=== PATIENT | female | born 1990 | race Caucasian/White ===

== ENCOUNTER 2016-06-19 08:37 | Emergency (ER) | payer OTHER, BC ==
[~2016-06-19] VITALS: Wt 72.0 kg
[~2016-06-19 08:37] MED LIST: CIPR500T4 PO; FERR-31 PO; IBUP-1542 PO; PREN1TAB49
[2016-06-19 10:22] LABS: BASOPHILS % 0.3 % (0.0-2.0); EOSINOPHILS # 0.2 10^3/ul (0.0-0.5); EOSINOPHILS % 1.4 % (0.0-7.0); HEMATOCRIT 39.5 % (37.0-47.0); HEMOGLOBIN 13.3 g/dl (12.0-16.0); LYMPHOCYTES % 18.3 % (15.0-51.0); MEAN CORPUSCULAR HEMOGLOBIN 30.5 pg (29.0-33.0); MEAN CORPUSCULAR HGB CONC 33.8 g/dl (32.0-37.0); MEAN CORPUSCULAR VOLUME 90.2 fl (82.0-101.0); MONOCYTE # 0.4 10^3/ul (0.3-0.9); MONOCYTES % 3.7 % (0.0-11.0); NEUTROPHIL # 8.3 10^3/ul (1.6-7.5); NEUTROPHILS % 76.3 % (39.0-77.0); PLATELET COUNT 244 10^3/UL (140-440); RED BLOOD COUNT 4.38 10^6/ul (4.20-5.40); RED CELL DISTRIBUTION WIDTH 13.6 % (11.5-14.5); UNCORRECTED WBC 10.9 10^3/ul (4.8-10.8); WHITE BLOOD COUNT 10.9 10^3/ul (4.8-10.8)
--- NOTE | 2016-06-19 10:24 | RADRPT ---
PROCEDURE: Abdominal Ultrasound (right upper quadrant). CLINICAL INDICATION: Abdominal pain TECHNIQUE: Multiple real-time longitudinal and transverse images of the right upper quadrant of th e abdomen were acquired utilizing a curved array transducer. Images were reviewed on a high-resoluti on PACS workstation. COMPARISON: CT abdomen pelvis 07/22/2015. FINDINGS: The liver is normal in size and echogenicity. No focal masses are identified. There is no evidenc e of intra or extrahepatic ductal dilatation. The common bile duct measures 3.9 mm in diameter. No gallstones or gallbladder wall thickening is seen. The visualized portions of the pancreas are unremarkable with obscuration of the tail of the pancrea s. No free fluid is identified. There is no evidence of right hydronephrosis or renal calcification. The right kidney measures 11.4 cm in length. The visualized portions of the aorta and inferior vena cava are within normal limits. IMPRESSION: 1. Unremarkable right upper quadrant ultrasound. RPTAT: KK .Ramon Gan MD, MD Date Time Electronically viewed and signed by .Ramon Gan MD, on 06/19/2016 10:24 .B/
[2016-06-19 10:26] LABS: CONDITION 1
--- NOTE | 2016-06-19 10:27 | RADRPT ---
PROCEDURE: US OB. CLINICAL INDICATION: Abdominal pain. . TECHNIQUE: Transabdominal imaging of the gravid uterus is available for review COMPARISON: None available FINDINGS: Intrauterine is identified. The crown-rump length equals 8.82 cm. The estimated menstrua l age equals 14 weeks 5 days by ultrasound criteria. Normal cardiac activity is identified. T he heart rate is 141 beats per minute. No perigestational hemorrhages identified. The ovaries are within normal limits bilaterally. No free fluid is seen. IMPRESSION: 1. Single live intrauterine with an estimated menstrual age of 14 weeks 5 days by ultraso und criteria and an estimated date of delivery of 12/13/2016. RPTAT: KK .Ramon Gan MD, Date Time Electronically viewed and signed by .Ramon Gan MD, on 06/19/2016 10:26 .B/
[2016-06-19 10:31] LABS: ADD UMIC YES; URINE BILIRUBIN (Dip) NEGATIVE (NEGATIVE); URINE BLOOD (Dip) 3+ (NEGATIVE); URINE COLOR LT. YELLOW (YELLOW); URINE GLUCOSE (Dip) NEGATIVE (NEGATIVE); URINE KETONES (Dip) NEGATIVE (NEGATIVE); URINE LEUKOCYTE ESTERASE (Dip) 2+ (NEGATIVE); URINE NITRITE (Dip) NEGATIVE (NEGATIVE); URINE TOTAL PROTEIN (Dip) NEGATIVE (NEGATIVE); URINE UROBILINOGEN (Dip) 0.2 E.U./dL (0.1-1.0)
[2016-06-19 10:43] LABS: ALBUMIN 3.8 g/dl (3.3-4.9)
[2016-06-19 10:44] LABS: POTASSIUM 3.8 mmol/L (3.5-5.1)
[2016-06-19 10:46] LABS: ALBUMIN/GLOBULIN RATIO 1.11; BILIRUBIN,INDIRECT 0.2 mg/dl (0-1.1); BILIRUBIN,TOTAL 0.2 mg/dl (0.2-1.3); CREATININE 0.49 mg/dl (0.44-1.00); TOTAL PROTEIN 7.2 g/dl (6.1-8.1)
[2016-06-19 10:47] LABS: CALCIUM 8.9 mg/dl (8.4-10.2)
[2016-06-19 10:48] LABS: BACTERIA,URINE FEW
[2016-06-19] MEDS ORDERED: CEPH-443 PO (10:50)
[2016-06-19] MEDS ORDERED: METO10TA92 PO (10:50)
[2016-06-19] MEDS ORDERED: CEPHALEXIN 500 MG CAP PO ONE (11:00)
[2016-06-19] MEDS ORDERED: METOCLOPRAMIDE 10 MG TAB PO ONE (11:00)
--- NOTE | 2016-06-19 11:05 | ERD ---
ER Documentation Chief Complaint Date/Time DATE: 06/19/16 TIME: 10:53 Chief Complaint nausea and vomiting with ap for 2 weeks. 14wks preg. no vag bleed HPI This is a 25-year-old female A2 (miscarriages) presenting to the emergency department stating she is 14 weeks complaining of abdominal pain since last week. Patient states that she has pelvic pain rating it moderate in severity. She denies any fever. Patient denies any hematuria, painful urination, or constipation. Patient does admit to having some diarrhea. She denies any vaginal bleeding. Patient also states that she has nausea and epigastric pain after she eats for the past 2 weeks. Patient states that she has been eating smaller meals and avoiding foods for gastritis but she still feels nauseous at times. She denies any vomiting, hematemesis, hematochezia or melena. Patient denies any past abdominal surgeries ROS All systems reviewed and are negative except as per history of present illness. Medications Home Meds Active Scripts Cephalexin* (Keflex*) 500 Mg Capsule, 500 MG PO QID for 5 Days, CAP Prov:BRENNA RAMIREZ PA-C 06/19/16 Metoclopramide* (Reglan*) 10 Mg Tablet, 5 MG PO Q6 Y for NAUSEA AND/OR VOMITING , #10 TAB Prov:BRENNA RAMIREZ PA-C 06/19/16 Ciprofloxacin Hcl* (Ciprofloxacin Hcl*) 500 Mg Tablet, 500 MG PO BID for 10 Days , TAB Prov:PATRICE SOLOMON PA-C 07/22/15 Ibuprofen* (Motrin*) 600 Mg Tab, 600 MG PO Q6, #30 TAB Prov:OSMIN JAMES MD 02/02/14 Reported Medications Ferrous Sulfate (Iron Supplement) 1 Tab Tablet, 1 TAB PO DAILY 01/18/14 Vits W-Ca,Fe,Fa(<1MG) () 1 Tab Tablet 07/06/11 Allergies Allergies: Coded Allergies: No Known Drug Allergies (Verified Allergy, Unknown, 07/22/15) PMhx/Soc History of Surgery: No Anesthesia Reaction: No Hx Neurological Disorder: No Hx Respiratory Disorders: No Hx Cardiac Disorders: No Hx Psychiatric Problems: No Hx Miscellaneous Medical Probl: No Hx Alcohol Use: No Hx Substance Use: No Hx Tobacco Use: No Physical Exam Vitals Vital Signs Date Time Temp Pulse Resp B/P Pulse Ox O2 Delivery O2 Flow Rate FiO2 06/19/16 08:42 98.3 75 20 119/70 100 Physical Exam GENERAL: well-developed/well-nourished, in no apparent distress, non-toxic appearing HENT: NC/AT, moist mucous membranes EYES: Conjunctiva normal NECK: Supple, no lymphadenopathy PULM: CTA bilaterally, no rales, rhonchi, or wheezing heard CV: Normal S1S2, RRR, good capillary refill GI: Soft, non-distended, tender to palpation mild epigastric region Tender palpation in the suprapubic region Normal bowel sounds, no masses or organomegaly felt on exam No gross peritonitis, no bruits Negative Rovsing, negative Sweet, negative McBurney's point, Negative CVAT BACK: No masses EXT: No clubbing, cyanosis, or edema NEURO: Alert and Orientated SKIN: Intact, normal turgor PSYCH: Normal mood and mentation Result Diagram: 06/19/1650 06/19/16 0950 Results 24 hrs Laboratory Tests Test 06/19/16 09:50 Alanine Aminotransferase (ALT/SGPT) 23IU/L Albumin 3.8g/dl Albumin/Globulin Ratio 1.11 Alkaline Phosphatase 71IU/L Anion Gap 17 Aspartate Amino Transf (AST/SGOT) 19IU/L Basophils # 0.010^3/ul Basophils % 0.3% Blood Urea Nitrogen 6mg/dl Calcium Level 8.9mg/dl Carbon Dioxide Level 24mmol/L Chloride Level 101mmol/L Creatinine 0.49mg/dl Direct Bilirubin 0.00mg/dl Eosinophils # 0.210^3/ul Eosinophils % 1.4% Globulin 3.40g/dl Glucose Level 88mg/dl Hematocrit 39.5% Hemoglobin 13.3g/dl Indirect Bilirubin 0.2mg/dl Lipase 177U/L Lymphocytes # 2.010^3/ul Lymphocytes % 18.3% Mean Corpuscular Hemoglobin 30.5pg Mean Corpuscular Hemoglobin Concent 33.8g/dl Mean Corpuscular Volume 90.2fl Mean Platelet Volume 9.0fl Monocytes # 0.410^3/ul Monocytes % 3.7% Neutrophils # 8.310^3/ul Neutrophils % 76.3% Nucleated Red Blood Cells # 0.010^3/ul Nucleated Red Blood Cells % 0.0/100WBC Platelet Count 90723^3/UL Potassium Level 3.8mmol/L Red Blood Count 4.3810^6/ul Red Cell Distribution Width 13.6% Sodium Level 138mmol/L Total Bilirubin 0.2mg/dl Total Protein 7.2g/dl Urine Bacteria FEW Urine Bilirubin NEGATIVE Urine Clarity CLEAR Urine Color LT. YELLOW Urine Epithelial Cells MODERATE Urine Glucose NEGATIVE% Urine Hemoglobin 3+ Urine Ketones NEGATIVE Urine Leukocyte Esterase 2+ Urine Microscopic RBC 2-5/HPF Urine Microscopic WBC 2-5/HPF Urine Nitrite NEGATIVE Urine Specific [place] 1.010 Urine Total Protein NEGATIVE Urine Urobilinogen 0.2 E.U./dL Urine pH 7.0 White Blood Count 10.910^3/ul Current Medications Medications (Trade) Dose Ordered Sig/Juan Manuel Route PRN Reason Start Time Stop Time Status Last Admin Dose Admin Metoclopramide HCl (Reglan) 5 mg ONCE ONCE PO 06/19/16 11:00 06/19/16 11:01 DC 06/19/16 11:01 Cephalexin (Keflex) 500 mg ONCE ONCE PO 06/19/16 11:00 06/19/16 11:01 DC 06/19/16 11:01 Procedures/MDM This is a 25-year-old female A2 (miscarriages) presenting to the emergency department stating she is 14 weeks complaining of nausea, diarrhea, epigastric and pelvic abdominal pain without any vaginal bleeding since last week. On examination patient appears well, she is smiling without any evidence of acute distress. Her abdominal examination was unremarkable, patient did have mild to moderate tenderness in her epigastric and pelvic region. Patient's pain is likely due to gastritis and acute cystitis with hematuria, Other differentials include gastroenteritis vs threatened . I have considered appendicitis, diverticulitis, pancreatitis, ovarian torsion, ruptured ovarian cyst, complete but is unlikely due to physical examination and diagnostic testing. I have a low suspicion for pyelonephritis or infected nephrolithiasis. Low suspicion for cholecystitis, cholelithiasis lab work was drawn. CBC did not show any evidence of significant leukocytosis or anemia. White count was mildly elevated at 10.9 which is likely due to stress reaction. CMP did not show any evidence of renal, liver, or electrolyte abnormalities. Lipase was normal. UA did did show evidence of a urinary tract infection with +2 leukocyte esterase, +3 hemoglobin, and 2-5 WBC. Patient was given 5mg Reglan in the ED and first dose of Keflex antibiotic. Patient is healing stable and neurovascular intact for discharge to follow-up with her OB/ [facility] today. Discussed to take her documentations with her. Discussed return to the ER for any worsening symptoms. Patient understands and agrees with this plan Gallbladder ultrasound was unremarkable Pelvic ultrasound: Single live intrauterine with an estimated menstrual age of 14 weeks 5 days by ultrasound criteria and an estimated date of delivery of 12/13/2016. Prescriptions given: keflex 500mg QID x 7 days and Reglan 5mg for nausea Departure Diagnosis: Primary Impression: UTI in Trimester: second trimester Qualified Code: O23.42 - UTI in , second trimester Additional Impression: GERD (gastroesophageal reflux disease) Esophagitis presence: esophagitis presence not specified Qualified Code: K21.9 - Gastroesophageal reflux disease, esophagitis presence not specified Condition: Stable Patient Instructions: Lifestyle Changes for Controlling GERD, Understanding Urinary Tract Infections (UTIs), Gerd (Adult) Referrals: CHARLEE ARMAS (PCP) Additional Instructions: FOLLOW UP WITH YOUR CANE PILER TOMORROW.Return to this facility if you are not improving as expected. Take all medicines as directed. Return to this facility if you are not improving as expected. BRENNA RAMIREZ PA-C Jun 19, 2016 11:05
[2016-06-19 11:10] VITALS: BP 124/65; PULSE 74; RESP 19; TEMP 98.2
== END 2016-06-19 11:12 | disposition home or self-care (01) ==
LOC: FTE 08:37
DX: O26.892 Other specified pregnancy related conditions, second trimester (principal); O23.42 Unspecified infection of urinary tract in pregnancy, second trimester; O99.612 Diseases of the digestive system complicating pregnancy, second trimester; K21.9 Gastro-esophageal reflux disease without esophagitis; R10.2 Pelvic and perineal pain; Z3A.14 14 weeks gestation of pregnancy
CPT/HCPCS: 36415; 76705; 76801; 80053; 81001; 83690; 84702; 85025; Z7502; Z7610; 81003

== ENCOUNTER → 2016-07-06 | Emergency (ER) | payer BC, OTHER ==
[~2016-07-06] VITALS: Ht 165.1 cm; Wt 75.4 kg
[~2016-07-06] MED LIST changes: +ACETAMINOPHEN 325 MG TAB PO STA; +CEPH-443 PO; +METO10TA92 PO; +NITR-58 PO; +ONDANSETRON 4 MG INJ IV STA; +SOD CHLORIDE 0.9% 1,000 ML IV STA
[2016-07-06 14:39] VITALS: Ht 165.1 cm; Wt 75.4 kg
[2016-07-06 17:35] LABS: ADD SCAN DIFF NO
[2016-07-06 17:40] LABS: BASOPHILS % 0.2 % (0.0-2.0); EOSINOPHILS # 0.1 10^3/ul (0.0-0.5); EOSINOPHILS % 1.3 % (0.0-7.0); HEMATOCRIT 37.5 % (37.0-47.0); HEMOGLOBIN 12.4 g/dl (12.0-16.0); LYMPHOCYTES # 2.2 10^3/ul (0.8-2.9); MEAN CORPUSCULAR HEMOGLOBIN 30.2 pg (29.0-33.0); MEAN CORPUSCULAR HGB CONC 33.1 g/dl (32.0-37.0); MEAN CORPUSCULAR VOLUME 91.2 fl (82.0-101.0); MEAN PLATELET VOLUME 10.6 fl (7.4-10.4); MONOCYTE # 0.7 10^3/ul (0.3-0.9); NEUTROPHILS % 71.9 % (39.0-77.0); PLATELET COUNT 253 10^3/UL (140-415); RED BLOOD COUNT 4.11 10^6/ul (4.20-5.40); RED CELL DISTRIBUTION WIDTH 13.2 % (11.5-14.5); WHITE BLOOD COUNT 11.1 10^3/ul (4.8-10.8)
[2016-07-06 17:43] LABS: ADD UMIC YES; URINE BILIRUBIN (Dip) NEGATIVE (NEGATIVE); URINE BLOOD (Dip) 3+ (NEGATIVE); URINE COLOR LT. YELLOW (YELLOW); URINE GLUCOSE (Dip) NEGATIVE (NEGATIVE); URINE KETONES (Dip) NEGATIVE (NEGATIVE); URINE LEUKOCYTE ESTERASE (Dip) TRACE (NEGATIVE); URINE NITRITE (Dip) NEGATIVE (NEGATIVE); URINE TOTAL PROTEIN (Dip) NEGATIVE (NEGATIVE); URINE UROBILINOGEN (Dip) 0.2 E.U./dL (0.1-1.0)
--- NOTE | 2016-07-06 17:57 | RADRPT ---
PROCEDURE: US OB. CLINICAL INDICATION: Vaginal bleeding TECHNIQUE: Multiple sonographic images of the pelvis and gravid uterus were obtained. The images were reviewed on a PACS workstation. COMPARISON: 06/19/2016 FINDINGS: The cervix is closed with a length of 5.6 cm. There is a single viable intrauterine gestation. Cardiac activity is present with 140 beats per min bebeto. There is a vertex presentation. The placenta is anterior lateral. There is no evidence for an abruption . There is evidence of part ial placenta previa, with the placenta branch extending to the level of the cervix.. There is a normal amount of amniotic fluid with a MVP= 3.9 cm. Measurements were made in order to determine age. The results are as follows: BPD =3.5 cm HC =12.6 cm AC =11.9 cm FL =2.1 cm Estimated gestational age of approximately 16 weeks and 6 days based on ultrasound measurements. The estimated date of delivery is 12/15/16, based on ultrasound measurements. The EFW = 174 g. The right ovary is normal. The left ovary is not visualized. RPTAT: AA IMPRESSION: Single viable intrauterine gestation of approximately 16 weeks and 6 days based on ultrasound measu rements. Anterior lateral placenta with partial placenta previa. .Navarro Jacob MD, MD Date Time Electronically viewed and signed by .Navarro Jacob MD, MD on 07/06/2016 17:56 .S/
[2016-07-06 18:10] LABS: BACTERIA,URINE MODERATE; SQUAMOUS EPITHELIAL CELL,UR MODERATE; URINE RBCS >50 /HPF (0)
--- NOTE | 2016-07-06 19:10 | ERD ---
ER Documentation Chief Complaint Date/Time DATE: 07/06/16 TIME: 18:55 Chief Complaint 17wks preg vag bleed (pink, scant bleeding) HPI Pleasant 25-year-old female presents to emergency department for vaginal bleeding. Patient reports that she is carrying a as a surrogate, proximately 17 weeks . 2 miscarriages. She is in room with her , reports that she was on the couch and got up to go to the bathroom. Patient reports blood in the toilet and on the toilet paper. Patient is wearing a lul-pad reports pink to red spotting, not saturating pads. Patient has had one pad on since bleeding started. Patient reports headache 3/10 on pain scale described as squeezing. Patient denies pelvic pain, back pain, dysuria, vomiting. Patient reports nausea, intermittent and that she is able to tolerate fluids. Patient denies fever or chills. . ROS All systems reviewed and are negative except as per history of present illness. Medications Home Meds Active Scripts Cephalexin* (Keflex*) 500 Mg Capsule, 500 MG PO QID for 5 Days, CAP Prov:BRENNA RAMIREZ PA-C 06/19/16 Metoclopramide* (Reglan*) 10 Mg Tablet, 5 MG PO Q6 Y for NAUSEA AND/OR VOMITING , #10 TAB Prov:BRENNA RAMIREZ PA-C 06/19/16 Ciprofloxacin Hcl* (Ciprofloxacin Hcl*) 500 Mg Tablet, 500 MG PO BID for 10 Days , TAB Prov:PATRICE SOLOMON PA-C 07/22/15 Ibuprofen* (Motrin*) 600 Mg Tab, 600 MG PO Q6, #30 TAB Prov:OSMIN JAMES MD 02/02/14 Reported Medications Ferrous Sulfate (Iron Supplement) 1 Tab Tablet, 1 TAB PO DAILY 01/18/14 Vits W-Ca,Fe,Fa(<1MG) () 1 Tab Tablet 07/06/11 Allergies Allergies: Coded Allergies: No Known Drug Allergies (Verified Allergy, Unknown, 07/22/15) PMhx/Soc Medical and Surgical Hx: pt denies Medical Hx, pt denies Surgical Hx History of Surgery: No Anesthesia Reaction: No Hx Neurological Disorder: No Hx Respiratory Disorders: No Hx Cardiac Disorders: No Hx Psychiatric Problems: No Hx Miscellaneous Medical Probl: No Hx Alcohol Use: No Hx Substance Use: No Hx Tobacco Use: No Smoking Status: Never smoker Physical Exam Vitals Vital Signs Date Time Temp Pulse Resp B/P Pulse Ox O2 Delivery O2 Flow Rate FiO2 07/06/16 14:39 98.1 79 18 108/58 100 Vitals stable, nursing notes reviewed Physical Exam Const: No acute distress Head: Atraumatic Eyes: Normal Conjunctiva, no pallor or jaundice, EOMI, pupils equal round and reactive to light and accommodation ENT: Mucous membranes moist, Neck: Full range of motion..~ No meningismus. Resp: Clear to auscultation bilaterally Cardio: Regular rate and rhythm, no murmurs Abd: Soft, no epigastric tenderness. Negative CVA tenderness Skin: Back: No midline or flank tenderness Ext: No cyanosis, or edema Neur: Awake and alert Psych: Normal Mood and Affect Result Diagram: 07/06/16 1710 Results 24 hrs Laboratory Tests Test 07/06/16 17:05 07/06/16 17:15 Urine Bacteria MODERATE Urine Bilirubin NEGATIVE Urine Clarity HAZY Urine Color LT. YELLOW Urine Glucose NEGATIVE% Urine Hemoglobin 3+ Urine Ketones NEGATIVE Urine Leukocyte Esterase TRACE Urine Microscopic RBC >50/HPF Urine Microscopic WBC 25-50/HPF Urine Nitrite NEGATIVE Urine Specific [place] 1.025 Urine Squamous Epithelial Cells MODERATE Urine Total Protein NEGATIVE Urine Urobilinogen 0.2 E.U./dL Urine pH 6.0 Basophils # 0.010^3/ul Basophils % 0.2% Beta HCG, Quantitative 39198.0mIU/ml Eosinophils # 0.110^3/ul Eosinophils % 1.3% Hematocrit 37.5% Hemoglobin 12.4g/dl Lymphocytes # 2.210^3/ul Lymphocytes % 20.0% Mean Corpuscular Hemoglobin 30.2pg Mean Corpuscular Hemoglobin Concent 33.1g/dl Mean Corpuscular Volume 91.2fl Mean Platelet Volume 10.6fl Monocytes # 0.710^3/ul Monocytes % 6.0% Neutrophils # 8.010^3/ul Neutrophils % 71.9% Nucleated Red Blood Cells # 0.010^3/ul Nucleated Red Blood Cells % 0.0/100WBC Platelet Count 63130^3/UL Red Blood Count 4.1110^6/ul Red Cell Distribution Width 13.2% White Blood Count 11.110^3/ul Current Medications Medications (Trade) Dose Ordered Sig/Juan Manuel Route PRN Reason Start Time Stop Time Status Last Admin Dose Admin Sodium Chloride (NS) 1,000 ml @ 1,000 mls/hr Q1H STAT IV 07/06/16 17:05 07/06/16 18:04 DC 07/06/16 17:25 Acetaminophen (Tylenol Tab) 650 mg ONCE STAT PO 07/06/16 17:05 07/06/16 17:08 DC 07/06/16 17:25 Ondansetron HCl (Zofran Inj) 4 mg ONCE STAT IV 07/06/16 17:05 07/06/16 17:08 DC 07/06/16 17:25 Interpretation Text CBC shows elevated white count suggestive of infection, no evidence of hemorrhage Urinalysis shows microscopic hematuria and psychosis suggestive of urinary tract infection. Procedures/MDM Pleasant 25-year-old female presenting to emergency department today with vaginal bleeding. Patient is approximately 17 weeks with surrogate . Symptoms started today when she moved from the couch. Patient is not saturating peripads. Vaginal ultrasound rules out the sentinel abruption. There is evidence of a partial placenta previa with placenta branch extending to the level of the cervix.. Ultrasound verifies that cervix is closed, single viable intrauterine . Patient is 16 weeks and 6 days gestation based on ultrasound measurements. Abnormal CBC , elevated WBC, urinalysis findings consistent with urinary tract infection. I have discussed case with I feel the patient is stable for discharge at this time. I have discussed results , examination findings, the treatment plan with the patient and family present prior to discharge. Indications for emergent reevaluation, side effects of medication were also discussed. All questions were answered. Patient verbalizes understanding and agrees with plan of care. MARIA DEL CARMEN BECERRA Jul 06, 2016 19:09
[2016-07-06 19:35] VITALS: BP 112/53; PULSE 64; RESP 18; TEMP 98.3
== END | disposition home or self-care (01) ==
LOC: FTE 14:33
DX: O23.42 Unspecified infection of urinary tract in pregnancy, second trimester (principal); Z3A.16 16 weeks gestation of pregnancy
CPT/HCPCS: 76805; 81001; 84702; 85025; 86900; 86901; 96374; 99285; J2405; J7030; 81003

== ENCOUNTER 2016-09-02 21:49 | Outpatient (CLI) | payer BC, OTHER ==
[~2016-09-02] VITALS: Ht 165.1 cm; Wt 79.4 kg
[~2016-09-02 21:49] MED LIST changes: -ACETAMINOPHEN 325 MG TAB PO STA; -ONDANSETRON 4 MG INJ IV STA; -SOD CHLORIDE 0.9% 1,000 ML IV STA
[2016-09-02 22:12] VITALS: Ht 165.1 cm; Wt 79.4 kg
[2016-09-02 22:13] VITALS: BP 118/53; PULSE 75; RESP 18
--- NOTE | 2016-09-02 22:16 | CONS ---
Date/Time of Note Date/Time of Note DATE: 09/02/16 TIME: 22:14 Assessment/Plan Assessment/Plan Additional Assessment/Plan r/o ptl -FFN, CL, UA ordered -f/u results Consultation Date/Type/Reason Admit Date/Time Hx of Present Illness 25 y/o at 25.4 weeks who presents with abdominal pain. Patient has pain on right side of abdomen that's constant and throughout abdomen that's intermittent. Denies LOF, VB, dysuria. +FM. Patient is a surrgogate. Getting PNC, no complications. h/o x3. Past Medical History Medical History: no pertinent history Past Surgical History Past Surgical Hx: no surgical history Social History Other Social History Denies habits. Exam/Review of Systems Exam Gen: NAD HEENT: NCAT CV: RRR Pulm: CTAB Abd: gravid, NT Back: no CVAT Ext: NT FHT: reassuring [place]: +JAZZMINE Deras Sep 02, 2016 22:16
[2016-09-02 23:02] LABS: ADD UMIC YES; URINE BILIRUBIN (Dip) NEGATIVE (NEGATIVE); URINE BLOOD (Dip) 1+ (NEGATIVE); URINE COLOR LT. YELLOW (YELLOW); URINE GLUCOSE (Dip) NEGATIVE (NEGATIVE); URINE KETONES (Dip) NEGATIVE (NEGATIVE); URINE LEUKOCYTE ESTERASE (Dip) 1+ (NEGATIVE); URINE NITRITE (Dip) NEGATIVE (NEGATIVE); URINE TOTAL PROTEIN (Dip) NEGATIVE (NEGATIVE); URINE UROBILINOGEN (Dip) 0.2 E.U./dL (0.1-1.0)
[2016-09-02 23:35] LABS: BACTERIA,URINE MODERATE; SQUAMOUS EPITHELIAL CELL,UR FEW
--- NOTE | 2016-09-03 00:24 | TRIAGE ---
OB Triage Datetime Report Generated by CPN: 09/03/2016 00:24 Datetime: 09/03/2016 23:20 Stage of : OB Triage Maternal Assessment Level of Consciousness: Fully Conscious Labor Evaluation Frequency: X1 Monitor Mode: External Duration (sec)2399: 70 Pain Presence: None/Denies Pain Goal: 3 Pain Assessment Comments: PT SLEEPING AT THIS MOMENT. Datetime: 09/03/2016 00:02 Stage of : OB Triage Datetime: 09/02/2016 22:30 Stage of : OB Triage Maternal Assessment Level of Consciousness: Fully Conscious Labor Evaluation Frequency: IRREGULAR Monitor Mode: External Duration (sec)2399: 60-70 Heart Rate FHR Baseline Rate: 140 Monitor Mode: Doppler Pain Assessment Pain Scale: 6 Pain Presence: Intermittent Pain Type: Cramping Pain Location: Abdomen Pain Goal: 3 Datetime: 09/02/2016 22:02 Stage of : OB Triage Time of Arrival: 09/02/2016 21:47 EGA: 25.4 Arrived By: Ambulatory Arrived From: Home Chief Complaint: PT C/O ABDOMEN PAIN AND HEADACH. (Annotations: Data stored by CPN on behalf of u ser) Chief Complaint: PT C/O ABDOMEN PAIN AND HEADACHE. Movement: Present Contractions: Irregular Rupture of Membranes: Denies Vaginal Bleeding: None Vaginal Discharge: Denies Recent Sexual Intercouse: Denies Abdominal Trauma: Not Applicable Patient Complaints: Back Pain; Headache Time Provider Notified: 09/02/2016 22:02 Provider Notified: DR TUBBS Initial Plan: TOCO APPLIED AND DOPPLAR Maternal Assessment Level of Consciousness: Fully Conscious DTR's/Clonus: DTRs 2+; No Clonus Headache: Denies Blurred Vision: No Respiratory Effort: Unlabored; Regular Rhythm; Equal Expansion Breath Sounds, Left: Clear and Equal Breath Sounds, Right: Clear and Equal Nausea/Vomiting: Denies RUQ Epigastric Pain: Denies Lower Extremities Edema: None Upper Extremities Edema: None Facial Edema: None Temperature Route: Oral Fall Risk Assessment History of Falling: (0) No Secondary Diagnosis: (0) No Ambulatory Aid: (0) Bedrest/Nurse Assist IV Therapy: (0) No Gait: (0) Normal/Bedrest/Immobile Mental Status: (0) Oriented to Own Ability Fall Score: 0 Fall Risk Score Definition: No Risk: No action required Labor Evaluation Frequency: IRREGULAR Monitor Mode: External Duration (sec)2399: 50-60 Heart Rate FHR Baseline Rate: 144 Monitor Mode: Doppler Pain Assessment Pain Scale: 6 Pain Presence: Intermittent Pain Type: Cramping Pain Location: Abdomen Pain Goal: 3
== END 2016-09-03 00:05 | disposition home or self-care (01) ==
LOC: OBT 21:49 → L-D 21:51 → OBT 09-03 00:05
PROVIDERS: ATTEND Obstetrics & Gynecology
DX: O47.02 False labor before 37 completed weeks of gestation, second trimester (principal); O26.892 Other specified pregnancy related conditions, second trimester; R10.11 Right upper quadrant pain; Z3A.25 25 weeks gestation of pregnancy
CPT/HCPCS: 81001; 81003; 82731

== ENCOUNTER 2016-12-06 11:41 | Outpatient (CLI) | payer BC, OTHER ==
[~2016-12-06] VITALS: Ht 165.1 cm; Wt 81.2 kg
[~2016-12-06 11:41] MED LIST changes: -CEPH-443 PO; -CIPR500T4 PO; -IBUP-1542 PO; -METO10TA92 PO; -NITR-58 PO
[2016-12-06] MEDS ORDERED: LACTATED RINGER'S 1,000 ML IV SCH (12:04)
[2016-12-06 12:06] VITALS: Ht 165.1 cm; Wt 81.2 kg
[2016-12-06 12:07] VITALS: BP 115/58; PULSE 90; RESP 20
[2016-12-06] MEDS ORDERED: ONDANSETRON 4 MG INJ IV PRN (12:30)
[2016-12-06 12:38] LABS: BASOPHILS % 0.1 % (0.0-2.0); EOSINOPHILS % 0.3 % (0.0-7.0); HEMATOCRIT 36.2 % (37.0-47.0); HEMOGLOBIN 12.2 g/dl (12.0-16.0); LYMPHOCYTES # 1.1 10^3/ul (0.8-2.9); LYMPHOCYTES % 11.5 % (15.0-51.0); MEAN CORPUSCULAR HEMOGLOBIN 29.5 pg (29.0-33.0); MEAN CORPUSCULAR HGB CONC 33.7 g/dl (32.0-37.0); MEAN CORPUSCULAR VOLUME 87.4 fl (82.0-101.0); MEAN PLATELET VOLUME 11.1 fl (7.4-10.4); MONOCYTE # 0.5 10^3/ul (0.3-0.9); MONOCYTES % 5.6 % (0.0-11.0); NEUTROPHIL # 7.8 10^3/ul (1.6-7.5); NEUTROPHILS % 82.2 % (39.0-77.0); PLATELET COUNT 213 10^3/UL (140-415); RED BLOOD COUNT 4.14 10^6/ul (4.20-5.40); RED CELL DISTRIBUTION WIDTH 13.5 % (11.5-14.5); WHITE BLOOD COUNT 9.4 10^3/ul (4.8-10.8)
--- NOTE | 2016-12-06 12:50 | RADRPT ---
PROCEDURE: OB ultrasound for biophysical profile with EDILMA. CLINICAL INDICATION: Contractions. TECHNIQUE: Multiple sonographic images of the gravid uterus were obtained. The images were review ed on a PACS workstation. COMPARISON: Exam dated 07/06/2016. FINDINGS: breathing movement = 2/2 tone = 2/2 motion = 2/2 EDILMA = 2/2 There is a single viable intrauterine gestation with cardiac and a heart rate of 156 bpm. Ther e is a cephalic presentation and an anterior, grade 1/2 placenta. There is no evidence of abruption or placenta previa. EDILMA = 11.7 cm IMPRESSION: 1. Single viable intrauterine gestation. 2. Biophysical profile = 8/8. 3. EDILMA = 11.7 cm. RPTAT: GG .Buddy Ron MD, MD Date Time Electronically viewed and signed by .Buddy Ron MD, MD on 12/06/2016 12:50 .P/
[2016-12-06 13:04] LABS: ALBUMIN 3.5 g/dl (3.3-4.9); ALBUMIN/GLOBULIN RATIO 1.02; BILIRUBIN,INDIRECT 0.1 mg/dl (0-1.1); BILIRUBIN,TOTAL 0.1 mg/dl (0.2-1.3); CALCIUM 8.9 mg/dl (8.4-10.2); CREATININE 0.5 mg/dl (0.44-1.00); POTASSIUM 3.8 mmol/L (3.5-5.1); TOTAL PROTEIN 6.9 g/dl (6.1-8.1)
[2016-12-06 13:33] LABS: ADD UMIC YES; UR ASCORBIC ACID NEGATIVE (NEGATIVE); UR BACTERIA FEW /HPF (NONE SEEN); UR BILIRUBIN (Dip) NEGATIVE (NEGATIVE); UR BLOOD (Dip) 1+ mg/dL (NEGATIVE); UR CLARITY CLOUDY (CLEAR); UR COLOR YELLOW (YELLOW); UR GLUCOSE (Dip) NEGATIVE (NEGATIVE); UR KETONES (Dip) NEGATIVE (NEGATIVE); UR LEUKOCYTE ESTERASE (Dip) 3+ Leu/ul (NEGATIVE); UR NITRITE (Dip) NEGATIVE (NEGATIVE); UR RBC 1 /HPF (0-5); UR SPECIFIC GRAVITY (Dip) 1.016 (1.003-1.030); UR SQUAMOUS EPITHELIAL CELL MODERATE /HPF (FEW); UR TOTAL PROTEIN (Dip) NEGATIVE (NEGATIVE); UR UROBILINOGEN (Dip) NEGATIVE (NEGATIVE)
--- NOTE | 2016-12-06 14:03 | RADRPT ---
PROCEDURE: US OB. CLINICAL INDICATION: The patient in labor. Uncertain dates. TECHNIQUE: Multiple sonographic images of the uterus were obtained. The images were revi ewed on a PACS workstation. COMPARISON: No prior studies are available for comparison. FINDINGS: There is a single live intrauterine gestation. heart rate is 132 beats per minute. Measurements were made in order to determine age. The results are as follows: BPD = 8.98 cm. HC = 32.35 cm. AC = 33.57 cm. FL = 6.67 cm. Estimated weight is 2952 +/- 443 grams. LMP growth percentile is 27 %. Menstrual age by ultrasound dates is 36 weeks 1 day. The estimated date of delivery is 01/02/2017. Position is cephalic and placenta is anterior grade II. There is no evidence for an abruption or [place] previa. IMPRESSION: 1. Single live intrauterine gestation of 36 weeks 1 day menstrual age by ultrasound dates. 2. The estimated date of delivery is 01/02/2017. RPTAT: QQ .Lobo Lopez MD, MD Date Time Electronically viewed and signed by .Lobo Lopez MD, on 12/06/2016 14:02 .R/
--- NOTE | 2016-12-06 16:12 | TRIAGE ---
OB Triage Datetime Report Generated by CPN: 12/06/2016 16:12 Datetime: 12/06/2016 15:15 Vaginal Exam Dilatation (cms): 2.5 Effacement (%): 50 Station: -3 Exam By: OGBODU , S. CHACHO Membrane Status: Intact Datetime: 12/06/2016 15:11 Labor Evaluation Frequency: 2-3 Monitor Mode: External Duration (sec)2399: 60-120 Quality: Moderate Pattern: Normal: <= 5 Contractions in 10 Minutes Resting Tone [place]: Relaxed Heart Rate FHR Baseline Rate: 135 Monitor Mode: External US Variability: Moderate 6-25 bpm Accelerations: 15X15 Decelerations: None Category: Category I Datetime: 12/06/2016 14:37 Assessment Type: Triage Maternal Assessment Level of Consciousness: Fully Conscious DTR's/Clonus: DTRs 2+; No Clonus Headache: Denies Blurred Vision: No Respiratory Effort: Unlabored; Regular Rhythm; Equal Expansion Breath Sounds, Left: Clear and Equal Breath Sounds, Right: Clear and Equal Nausea/Vomiting: Denies RUQ Epigastric Pain: Denies Lower Extremities Edema: None Upper Extremities Edema: None Degree: None Facial Edema: None Fall Risk Assessment History of Falling: (0) No Secondary Diagnosis: (0) No Ambulatory Aid: (0) Bedrest/Nurse Assist IV Therapy: (0) No Gait: (0) Normal/Bedrest/Immobile Mental Status: (0) Oriented to Own Ability Fall Score: 0 Fall Risk Score Definition: No Risk: No action required Datetime: 12/06/2016 14:05 Labor Evaluation Frequency: 3-5 Monitor Mode: External Duration (sec)2399: 50-90 Quality: Moderate Pattern: Normal: <= 5 Contractions in 10 Minutes Resting Tone [place]: Relaxed Heart Rate FHR Baseline Rate: 135 Monitor Mode: External US Variability: Moderate 6-25 bpm Accelerations: 15X15 Decelerations: None Category: Category I Datetime: 12/06/2016 13:14 Stage of : Labor Datetime: 12/06/2016 13:13 Labor Evaluation Frequency: 4-7 Monitor Mode: External Duration (sec)2399: 40-80 Quality: Moderate Pattern: Normal: <= 5 Contractions in 10 Minutes Resting Tone [place]: Relaxed Heart Rate FHR Baseline Rate: 135 Monitor Mode: External US Variability: Moderate 6-25 bpm Accelerations: 15X15 Decelerations: None Category: Category I Comments: NST REACTIVE FOR GESTATIONAL AGE Datetime: 12/06/2016 13:00 Stage of : OB Triage Assessment Type: Triage Maternal Assessment Level of Consciousness: Fully Conscious DTR's/Clonus: DTRs 2+; No Clonus Headache: Denies Blurred Vision: No Respiratory Effort: Unlabored; Regular Rhythm; Equal Expansion Breath Sounds, Left: Clear and Equal Breath Sounds, Right: Clear and Equal Nausea/Vomiting: Denies RUQ Epigastric Pain: Denies Lower Extremities Edema: None Degree: None Upper Extremities Edema: None Degree: None Facial Edema: None Temperature Route: Axillary Fall Risk Assessment History of Falling: (0) No Secondary Diagnosis: (0) No Ambulatory Aid: (0) Bedrest/Nurse Assist IV Therapy: (0) No Gait: (0) Normal/Bedrest/Immobile Mental Status: (0) Oriented to Own Ability Fall Score: 0 Fall Risk Score Definition: No Risk: No action required Pain Assessment Pain Scale: 6 Pain Presence: Intermittent Pain Type: N/A Pain Location: Abdomen Pain Goal: 2 Pain Relief Measures: Comfort Measures Datetime: 12/06/2016 12:32 Vaginal Exam Dilatation (cms): 2.0 Effacement (%): 50 Station: -3 Exam By: OGBODU Cervix, Consistency: Soft Datetime: 12/06/2016 12:29 Contraction Comments: TOCO CHANGED AT THIS TIME Datetime: 12/06/2016 12:24 Monitor Mode: External Resting Tone [place]: Relaxed Contraction Comments: NO UC'S NOTED AT THIS TIME Heart Rate FHR Baseline Rate: 145 Monitor Mode: External US Variability: Moderate 6-25 bpm Accelerations: 15X15 Decelerations: None Comments: NST REACTIVE FOR GESTATIONAL AGE Datetime: 12/06/2016 12:15 EGA: 39.0 Datetime: 12/06/2016 12:11 Time of Arrival: 12/06/2016 11:34 EGA: 39.1 Arrived By: Ambulatory Arrived From: Home Chief Complaint: N/V, ABDOMINAL PAIN Movement: Present Contractions: Irregular Rupture of Membranes: Denies Vaginal Bleeding: None Vaginal Discharge: Denies Recent Sexual Intercouse: Denies Abdominal Trauma: Not Applicable Patient Complaints: None Time Provider Notified: 12/06/2016 12:00 Provider Notified: DR. BUCHANAN Initial Plan: EFM AND CALL MD Datetime: 09/02/2016 22:02 EGA: 25.4 Fall Score: 0 Fall Risk Score Definition: No Risk: No action required
--- NOTE | 2016-12-06 16:41 | PN ---
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 Follow-up in the office in 2 day Weeks of Gestation 39 weeks : 5 Para: 3 Diabetes: none Hypertention: none Objective Vital Signs Date Time Temp Pulse Resp B/P Pulse Ox O2 Delivery O2 Flow Rate FiO2 12/06/16 12:07 98.0 90 20 115/58 99 Room Air Heart Rate: 130's Contractions: >10 Minutes Apart Results/Medications Result Diagram: 12/06/16 1224 12/06/16 1224 Results 24 hrs Laboratory Tests Test 12/06/16 12:24 12/06/16 12:27 White Blood Count 9.4 Red Blood Count 4.14 L Hemoglobin 12.2 Hematocrit 36.2 L Mean Corpuscular Volume 87.4 Mean Corpuscular Hemoglobin 29.5 Mean Corpuscular Hemoglobin Concent 33.7 Red Cell Distribution Width 13.5 Platelet Count 213 Mean Platelet Volume 11.1 H Neutrophils % 82.2 H Lymphocytes % 11.5 L Monocytes % 5.6 Eosinophils % 0.3 Basophils % 0.1 Nucleated Red Blood Cells % 0.0 Neutrophils # 7.8 H Lymphocytes # 1.1 Monocytes # 0.5 Eosinophils # 0.0 Basophils # 0.0 Nucleated Red Blood Cells # 0.0 Sodium Level 138 Potassium Level 3.8 Chloride Level 106 Carbon Dioxide Level 19 L Anion Gap 17 H Blood Urea Nitrogen 5 L Creatinine 0.50 Glucose Level 76 Calcium Level 8.9 Total Bilirubin 0.1 L Direct Bilirubin 0.00 Indirect Bilirubin 0.1 Aspartate Amino Transf (AST/SGOT) 18 Alanine Aminotransferase (ALT/SGPT) 25 Alkaline Phosphatase 130 H Total Protein 6.9 Albumin 3.5 Globulin 3.40 H Albumin/Globulin Ratio 1.02 Urine Color YELLOW Urine Clarity CLOUDY A Urine pH 7.0 Urine Specific Corry 1.016 Urine Ketones NEGATIVE Urine Nitrite NEGATIVE Urine Bilirubin NEGATIVE Urine Urobilinogen NEGATIVE Urine Leukocyte Esterase 3+ H Urine Microscopic RBC 1 Urine Microscopic WBC 25 H Urine Squamous Epithelial Cells MODERATE Urine Bacteria FEW A Urine Hemoglobin 1+ H Urine Glucose NEGATIVE Urine Total Protein NEGATIVE TIMMY BUCHANAN MD Dec 06, 2016 16:40
== END 2016-12-06 15:45 | disposition home or self-care (01) ==
LOC: OBT 11:41 → L-D 11:43 → OBT 15:45
PROVIDERS: ATTEND Obstetrics & Gynecology
DX: O26.893 Other specified pregnancy related conditions, third trimester (principal); Z3A.39 39 weeks gestation of pregnancy; R10.9 Unspecified abdominal pain
CPT/HCPCS: 76815; 76818; 80053; 81001; 85025; J7120; 36415; 96360; 96361; 96375; G0463

== ENCOUNTER 2016-12-14 11:32 | Outpatient (CLI) | payer BC, OTHER ==
[~2016-12-14] VITALS: Ht 165.1 cm; Wt 81.0 kg
[2016-12-14 11:36] VITALS: Ht 165.1 cm; Wt 81.0 kg
[2016-12-14 11:51] VITALS: BP 111/61; PULSE 81; RESP 18
--- NOTE | 2016-12-14 12:23 | RADRPT ---
PROCEDURE: US OB biophysical profile. CLINICAL INDICATION: decreased movements, post dates TECHNIQUE: Multiple sonographic images of the pelvis were obtained. The images were reviewed on a PACS workstation. COMPARISON: 12/06/16 FINDINGS: There is a single viable intrauterine gestation. Cardiac activity is present with 135 beats per min [place]. There is a vertex presentation. The placenta is anterior. There is no evidence of placental abruption. There is a normal amount of amniotic fluid with an EDILMA = 11.9 cm. Biophysical profile: movement 2/2 tone 2/2. breathing 2/2 EDILMA 2/2 Total 12/19 RPTAT: AA . IMPRESSION: Normal biophysical profile. . .Navarro Jacob MD, MD Date Time Electronically viewed and signed by .Navarro Jacob MD, MD on 12/14/2016 12:22 .S/
--- NOTE | 2016-12-14 15:08 | CONS ---
Date/Time of Note Date/Time of Note DATE: 12/14/16 TIME: 14:58 Consultation Date/Type/Reason Admit Date/Time December 14, 2016 OB triage consult Reason for Consultation This patient is a 26 years old 6 para 3 2 with estimated date of confinement December 14, 2015 which makes at 40 weeks and 1 day she had all of her past 3 deliveries were spontaneous vaginal delivery. This is apparently a surrogate one. On examination she is a well-developed well-nourished lady at term . . Her vital signs are stable with the blood pressure of 111/61 pulse rate 81 respiration 18 temperature 98.6.... Her abdomen is soft, she does have occasional contractions every 6-7 minutes and fairly irregular. heart tone is normal with good variability occasional acceleration no evidence of decelerations Pelvic examination the cervix was about 2 cm dilated 30% effacement and -2-4 station. Constitutional: No chills, No diaphoresis, No disoriented, No febrile, No improved, No no complaints, No other, No poor po, No requiring IVF, No requiring O2 Eyes: No discharge, No no complaints, No other, No pain, No redness, No visual change ENT: No bleeding, No congestion, No discharge, No dysphagia, No no complaints, No other, No pain, No sore throat Respiratory: No cough, No no complaints, No other, No pain, No pleuritic pain, No shortness of breath, No sputum, No wheezing Cardiovascular: No chest pain, No edema, No lightheadedness, No no complaints, No orthopenea, No other, No palpitations, No paroxysmal nocturnal dyspnea Gastrointestinal: No blood, No constipation, No decreased appetite, No diarrhea , No flatus, No nausea, No no complaints, No other, No pain, No passing stool, No vomiting Genitourinary: other (On pelvic examination as I mentioned the cervix was 2 cm dilated 30% effaced and head at -4 station with intact membranes), No bleeding, No discharge, No dysuria, No flank pain, No hematuria, No no complaints Musculoskeletal: No back pain, No bone/joint pain, No neck pain, No no complaints, No other, No restricted range of motion, No swelling Skin: No bruising, No erythema, No laceration, No no complaints, No other, No pruritis, No rash, No skin lesions Neurologic: other (Knee-jerk reflex was normal), No confusion, No dizziness, No focal-weakness, No headache, No no complaints , No seizure, No syncope Endocrine: other, No dry skin, No no complaints, No polydypsia, No polyuria, No temp intolerance Additional Comments On ultrasound study the report was a single viable intrauterine gestation with cardiac activity 135 bpm, in vertex presentation placenta was anterior with no evidence of abruptio amniotic fluid index was 11.9 cm, her biophysical profile was 8/8 With this positive finding patient was reassured and was discharged home to be followed in the clinic. She will return to the triage in 4 days if no labor Final diagnosis :postterm Triage consult Past Surgical History Past Surgical Hx: no surgical history Social History Smoking Status: Never smoker Exam/Review of Systems Vital Signs Vitals Vital Signs Date Time Temp Pulse Resp B/P Pulse Ox O2 Delivery O2 Flow Rate FiO2 12/14/16 11:51 98.6 81 18 111/61 Room Air ADELINE VELASCO MD Dec 14, 2016 15:07
--- NOTE | 2016-12-14 17:35 | TRIAGE ---
OB Triage Datetime Report Generated by CPN: 12/14/2016 17:35 Datetime: 12/14/2016 14:20 Labor Evaluation Frequency: 2-7 Monitor Mode: External Duration (sec)2399: 60-120 Quality: Moderate Pattern: Normal: <= 5 Contractions in 10 Minutes Resting Tone [place]: Relaxed Heart Rate FHR Baseline Rate: 130 Monitor Mode: External US FHR Baseline Changes: No Baseline Change Variability: Moderate 6-25 bpm Accelerations: 15X15 Decelerations: None Category: Category I Pain Assessment Pain Presence: None/Denies Pain Assessment Comments: Pt denies feeling any pain or pressure with contractions Datetime: 12/14/2016 14:03 Vaginal Exam Dilatation (cms): 2.0 Effacement (%): 30 Station: -4 Exam By: Marika RN Datetime: 12/14/2016 13:30 Labor Evaluation Frequency: 3-6 Monitor Mode: External Duration (sec)2399: 50-140 Quality: Moderate Pattern: Normal: <= 5 Contractions in 10 Minutes Resting Tone [place]: Relaxed Heart Rate FHR Baseline Rate: 135 Monitor Mode: External US FHR Baseline Changes: No Baseline Change Variability: Moderate 6-25 bpm Accelerations: 15X15 Decelerations: None Category: Category I Pain Assessment Pain Presence: None/Denies Datetime: 12/14/2016 12:30 Labor Evaluation Frequency: OCC Monitor Mode: External Duration (sec)2399: 60-120 Quality: Mild Pattern: Normal: <= 5 Contractions in 10 Minutes Resting Tone [place]: Relaxed Monitor Mode: External US FHR Baseline Changes: No Baseline Change Variability: Moderate 6-25 bpm Accelerations: 15X15 Decelerations: None Category: Category I Pain Assessment Pain Presence: None/Denies Datetime: 12/14/2016 11:50 Time of Arrival: 12/14/2016 11:30 EGA: 40.1 Arrived By: Ambulatory Arrived From: Home Chief Complaint: Sent from clinic for NST/BPP Movement: Present Contractions: Denies/Absent Rupture of Membranes: Denies Vaginal Discharge: Denies Recent Sexual Intercouse: Denies Abdominal Trauma: Not Applicable Patient Complaints: None Time Provider Notified: 12/14/2016 12:35 Provider Notified: José Miguel Initial Plan: NST/BPP Datetime: 12/14/2016 11:45 Assessment Type: Triage Maternal Assessment Level of Consciousness: Fully Conscious DTR's/Clonus: DTRs 2+; No Clonus Headache: Denies Blurred Vision: No Respiratory Effort: Unlabored; Regular Rhythm; Equal Expansion Breath Sounds, Left: Clear and Equal Breath Sounds, Right: Clear and Equal Nausea/Vomiting: Denies RUQ Epigastric Pain: Denies Lower Extremities Edema: Bilateral Lower Extremities Degree: Trace Upper Extremities Edema: None Degree: None Facial Edema: None Fall Risk Assessment History of Falling: (0) No Secondary Diagnosis: (0) No Ambulatory Aid: (0) Bedrest/Nurse Assist IV Therapy: (0) No Gait: (0) Normal/Bedrest/Immobile Mental Status: (0) Oriented to Own Ability Fall Score: 0 Fall Risk Score Definition: No Risk: No action required Datetime: 12/14/2016 11:33 Stage of : OB Triage Datetime: 12/06/2016 14:37 Fall Score: 0 Fall Risk Score Definition: No Risk: No action required Datetime: 12/06/2016 13:00 Fall Score: 0 Fall Risk Score Definition: No Risk: No action required Datetime: 12/06/2016 12:15 EGA: 39.0 Datetime: 12/06/2016 12:11 EGA: 39.1 Datetime: 09/02/2016 22:02 EGA: 25.4 Fall Score: 0 Fall Risk Score Definition: No Risk: No action required
== END 2016-12-14 14:55 | disposition home or self-care (01) ==
LOC: OBT 11:32 → L-D 11:33 → OBT 14:55
PROVIDERS: ATTEND Obstetrics & Gynecology
DX: O48.0 Post-term pregnancy (principal); Z3A.40 40 weeks gestation of pregnancy
CPT/HCPCS: 76818; G0463

== ENCOUNTER 2016-12-18 07:05 | Inpatient (IN) | payer BC, OTHER ==
[2016-12-15 07:29] VITALS: BP 116/63; PULSE 87
[~2016-12-18] VITALS: Ht 165.1 cm; Wt 81.4 kg
[2016-12-18 07:26] VITALS: Ht 165.1 cm; Wt 81.4 kg
[2016-12-18 07:27] VITALS: BP 110/59; PULSE 92; RESP 18
[2016-12-18] MEDS ORDERED: BUTORPHANOL 2 MG INJ IV PRN (08:30)
[2016-12-18] MEDS ORDERED: CARBOPROST 250 MCG INJ IM PRN (08:30)
[2016-12-18] MEDS ORDERED: METHYLERGONOVINE 0.2 MG INJ IM PRN (08:30)
[2016-12-18] MEDS ORDERED: MISOPROSTOL 200 MCG TAB PR PRN (08:30)
[2016-12-18] MEDS ORDERED: OXYTOCIN 30 UNITS/LR 500 ML IV PRN (08:30)
[2016-12-18] MEDS ORDERED: OXYTOCIN 30 UNITS/LR 500 ML IV SCH ×3 (08:30→09:00)
[2016-12-18] MEDS ORDERED: LIDOCAINE 1% (MPF) 30 ML INJ INJ PRN (08:30)
[2016-12-18] MEDS ORDERED: LACTATED RINGER'S 1,000 ML IV PRN (08:30)
[2016-12-18] MEDS: LACTATED RINGER'S 1,000 ML IV SCH ×3 (08:59→22:30)
[2016-12-18 09:18] LABS: BASOPHILS % 0.1 % (0.0-2.0); EOSINOPHILS # 0.1 10^3/ul (0.0-0.5); EOSINOPHILS % 1.3 % (0.0-7.0); HEMATOCRIT 36.9 % (37.0-47.0); HEMOGLOBIN 12.4 g/dl (12.0-16.0); LYMPHOCYTES # 1.9 10^3/ul (0.8-2.9); LYMPHOCYTES % 23.7 % (15.0-51.0); MEAN CORPUSCULAR HEMOGLOBIN 29.5 pg (29.0-33.0); MEAN CORPUSCULAR HGB CONC 33.6 g/dl (32.0-37.0); MEAN CORPUSCULAR VOLUME 87.9 fl (82.0-101.0); MEAN PLATELET VOLUME 11.2 fl (7.4-10.4); MONOCYTE # 0.6 10^3/ul (0.3-0.9); MONOCYTES % 6.8 % (0.0-11.0); NEUTROPHIL # 5.6 10^3/ul (1.6-7.5); NEUTROPHILS % 67.9 % (39.0-77.0); PLATELET COUNT 222 10^3/UL (140-415); RED CELL DISTRIBUTION WIDTH 13.9 % (11.5-14.5); WHITE BLOOD COUNT 8.2 10^3/ul (4.8-10.8)
[2016-12-18 09:45] LABS: INR 0.93; PROTIME 12.5 Sec (12.2-14.2)
--- NOTE | 2016-12-18 09:55 | HP ---
Date/Time of Note Date/Time of Note DATE: 12/18/16 TIME: 09:40 OB - History Hx of Present Free Text/Dictation 26 years old [id number] surrogate mother, admitted to [facility] at 40 weeks and 5 day in early labor, pelvic examination on admission , cervix 2 cm dilated 70% effaced vertex at -2 station her contractions are every 4-7 minutes with moderate quality, require labor augmentation ,this was discussed with the patient, all questions answered she agreed to proceed with Pitocin augmentation. Chief Complaint: 40 weeks 5 days in early labor Estimated Due Date: Dec 13, 2016 : 6 Para: 3 Spontaneous : 2 Care: Good Care Ultrasounds: Normal mid trimester US Obstetrical Complications: None Medical Complications: None Past Family/Social History * Past Medical, Surgical, Family and Obstetric Histories reviewed from chart. Rubella: immune RPR/VDRL: Negative GBS Status: Negative HBsAG: Negative OB Admission Exam Vital Signs Vital Signs Vital Signs Date Time Temp Pulse Resp B/P Pulse Ox O2 Delivery O2 Flow Rate FiO2 12/18/16 07:27 97.8 92 18 110/59 Physical Exam HEENT: WNL Heart: Rhythm Normal Lungs: Clear, Equal Abdomen: WNL Extremities: Normal Reflexes: Normal Cervical Dilatation: 2cm Effacement: 75% Station: -2 Membranes: Intact Heart Rate: 130's Accelerations: Accelerations Present Decelerations: No Decelerations Varibility: Moderate Contractions on Admission: >10 Minutes Apart Intensity: Mild Last 72 hours Lab Results CBC & BMP 12/18/16 08:45 OB Assessment/Plan Reason for admission: other (27 years old female 6 para 3 EDC December 13 surrogate mother admitted at 40 weeks and 5 days in early labor she may require labor augmentation) Plan: Other (Labor augmentation) TIMMY BUCHANAN MD Dec 18, 2016 09:51
[2016-12-19] MEDS: BUTORPHANOL 2 MG INJ IV PRN ×2 (05:35→06:34)
[2016-12-19] MEDS: LACTATED RINGER'S 1,000 ML IV SCH (06:43)
--- NOTE | 2016-12-19 08:21 | LDN ---
Date/Time of Note Date/Time of Note DATE: 12/19/16 TIME: 08:13 Delivery Summary of a baby boy from OA position shoulders delivered with no difficulty , baby had nuchal cord#2 ,placenta spontaneous expulsion inspected complete,no perineal laceration,blood loss 250cc Weeks of Gestation 40 weeks 10/18 Placenta Delivered: Spontaneously Meconium: none Laceration repair: none Anesthesia type: None Estimated blood loss: 250 Sponge & Needle done & correct: Yes All needle counts correct: Yes Any foreign bodies felt in the: No Problems: Infant Delivery Information Sex Sex: male Apgars 1 Minute: 9 5 Minute: 9 Suctioning Nose & mouth suctioned at lul: Yes Delee suction performed: No Umbilical Cord Umbilical cord with: 3 Vessels Cord presentations: nuchal cord Nuchal cord present X: 2 Cord Blood was obtained: Yes TIMMY BUCHANAN MD Dec 19, 2016 08:21
[2016-12-19] MEDS ORDERED: IBUPROFEN 600 MG TAB PO PRN (08:30)
[2016-12-19] MEDS ORDERED: OXYTOCIN 30 UNITS/LR 500 ML IV SCH (09:58)
[2016-12-19] MEDS ORDERED: HYDROCODONE/APAP (5/325) TAB PO PRN ×2 (10:00)
[2016-12-19] MEDS ORDERED: LANOLIN 7 GM TUBE TOP PRN (10:00)
[2016-12-19] MEDS ORDERED: BENZOCAINE 20% 56 ML SPRAY TOP PRN (10:00)
[2016-12-19] MEDS ORDERED: DIBUCAINE 1% 30 GM OINT PR PRN (10:00)
[2016-12-19] MEDS ORDERED: ONDANSETRON 4 MG INJ IV PRN (10:00)
[2016-12-19] MEDS ORDERED: WITCH HAZEL/GLYCERIN PAD PR PRN (10:00)
[2016-12-19] MEDS ORDERED: OXYCODONE/ASPIRIN (4.88/325) TAB PO PRN ×2 (10:00)
[2016-12-19] MEDS: SENNA/DOCUSATE NA (8.6MG/50MG) TAB PO SCH ×2 (10:47→20:06)
[2016-12-19] MEDS: ACETAMINOPHEN 325 MG TAB PO PRN ×2 (13:22→20:06)
[2016-12-20] MEDS: IBUPROFEN 600 MG TAB PO SCH ×2 (00:10→06:27)
[2016-12-20 06:48] LABS: BASOPHILS % 0.1 % (0.0-2.0); EOSINOPHILS # 0.1 10^3/ul (0.0-0.5); EOSINOPHILS % 0.8 % (0.0-7.0); HEMATOCRIT 33.9 % (37.0-47.0); HEMOGLOBIN 11.2 g/dl (12.0-16.0); LYMPHOCYTES # 2.1 10^3/ul (0.8-2.9); LYMPHOCYTES % 24.8 % (15.0-51.0); MEAN CORPUSCULAR HEMOGLOBIN 29.6 pg (29.0-33.0); MEAN CORPUSCULAR VOLUME 89.4 fl (82.0-101.0); MEAN PLATELET VOLUME 11.2 fl (7.4-10.4); MONOCYTE # 0.7 10^3/ul (0.3-0.9); MONOCYTES % 7.9 % (0.0-11.0); NEUTROPHIL # 5.6 10^3/ul (1.6-7.5); PLATELET COUNT 183 10^3/UL (140-415); RED BLOOD COUNT 3.79 10^6/ul (4.20-5.40); RED CELL DISTRIBUTION WIDTH 14.1 % (11.5-14.5); WHITE BLOOD COUNT 8.5 10^3/ul (4.8-10.8)
[2016-12-20] MEDS: SENNA/DOCUSATE NA (8.6MG/50MG) TAB PO SCH (08:55)
--- NOTE | 2016-12-20 10:27 | PD.PPDC ---
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
--- NOTE | 2016-12-20 10:31 | DS ---
Date/Time of Note Date/Time of Note DATE: 12/20/16 TIME: 10:30 Discharge Summary Admission/Discharge Info Admit Date/Time Dec 18, 2016 at 08:19 Discharge Date/Time December 20, 2016 at 1038 Discharge Diagnosis day 1 Patient Condition: Good Procedures Normal spontaneous vaginal delivery Hx of Present Illness Term in labor Hospital Course Satisfactory recovery uneventful Home Meds Reported Medications Ferrous Sulfate (Iron Supplement) 1 Tab Tablet, 1 TAB PO DAILY 01/18/14 Vits W-Ca,Fe,Fa(<1MG) () 1 Tab Tablet 07/06/11 Follow-up Plan instruction given recommended to make appointment in 2 weeks Primary Care Provider Not On Staff Doctor Time spent on discharge: < 30 minutes Pending Labs Laboratory Tests Test 12/20/16 06:32 White Blood Count 8.510^3/ul (4.8-10.8) Red Blood Count 3.7910^6/ul (4.20-5.40) Hemoglobin 11.2g/dl (12.0-16.0) Hematocrit 33.9% (37.0-47.0) Mean Corpuscular Volume 89.4fl (82.0-101.0) Mean Corpuscular Hemoglobin 29.6pg (29.0-33.0) Mean Corpuscular Hemoglobin Concent 33.0g/dl (32.0-37.0) Red Cell Distribution Width 14.1% (11.5-14.5) Platelet Count 23894^3/UL (140-415) Mean Platelet Volume 11.2fl (7.4-10.4) Neutrophils % 66.0% (39.0-77.0) Lymphocytes % 24.8% (15.0-51.0) Monocytes % 7.9% (0.0-11.0) Eosinophils % 0.8% (0.0-7.0) Basophils % 0.1% (0.0-2.0) Nucleated Red Blood Cells % 0.0/100WBC (0.0-0.0) Neutrophils # 5.610^3/ul (1.6-7.5) Lymphocytes # 2.110^3/ul (0.8-2.9) Monocytes # 0.710^3/ul (0.3-0.9) Eosinophils # 0.110^3/ul (0.0-0.5) Basophils # 0.010^3/ul (0.0-0.1) Nucleated Red Blood Cells # 0.010^3/ul (0.0-0.0) TIMMY BUCHANAN MD Dec 20, 2016 10:31
[2016-12-21] MEDS ORDERED: MEASLES,MUMPS,RUBELLA VACCINE INJ SC* ONE (09:00)
== END 2016-12-20 11:45 | disposition home or self-care (01) | DRG 775 ==
LOC: L-D 07:05 → OBT 07:05 → L-D 08:19 → OBG 12-19 09:45
PROVIDERS: ADMIT Obstetrics & Gynecology; ATTEND Obstetrics & Gynecology
PROC: 10E0XZZ Delivery of Products of Conception, External Approach (ICD-10-PCS; principal; 2016-12-19)
DX: O48.0 Post-term pregnancy (principal); O69.81X0 Labor and delivery complicated by cord around neck, without compression, not applicable or unspecified; Z3A.40 40 weeks gestation of pregnancy; Z37.0 Single live birth
CPT/HCPCS: 85025; 85610; 85730; 86592; 86900; 86901; 87340; G0463; J0595; J2590; J7120

== ENCOUNTER 2017-03-19 10:42 | Emergency (ER) | payer BC ==
[~2017-03-19] VITALS: Ht 162.6 cm; Wt 74.3 kg
[2017-03-19 10:46] VITALS: Ht 162.6 cm; Wt 74.3 kg
[2017-03-19] MEDS ORDERED: IBUPROFEN 600 MG TAB PO ONE (12:30)
--- NOTE | 2017-03-19 12:49 | RADRPT ---
PROCEDURE: XR Chest AP portable CLINICAL INDICATION: Left-sided chest pain TECHNIQUE: An AP portable radiograph of the chest was submitted. COMPARISON: None. FINDINGS: Support Hardware: None Cardiovascular: The cardiovascular silhouette appears unremarkable. Lung Mahmood: A 7 mm nodular density projects to the lateral right lower lung zone. The lung mahmood a re otherwise clear. Pleural Spaces: No pneumothorax or pleural effusion is identified. Osseous Structures: The osseous structures appear intact. Soft Tissues: The soft tissues appear unremarkable. IMPRESSION: 1. A 7 mm nodular density projects to the lateral right lower lung zone. If the patient is low risk and previous chest images cannot be obtained, a CT at 6-12 months and then at 18-24 months would be useful to further evaluate. 2. Otherwise, unremarkable chest. Physician Gregor Date Time Electronically viewed and signed by Beba Holman Physician on 03/19/2017 12:49 /
--- NOTE | 2017-03-19 13:20 | ERD ---
ER Documentation Chief Complaint Chief Complaint LT SIDE CHEST WALL PAIN X 3 DAYS , NO SOB HPI 26 year old female comes in with left sided chest pain x 1 month. Patient describes sharp left sided chest pain fo 1 month states that she has not radiating pain, intermittent. She has not had any exacerbating factors, is not exertional. She denies hemoptysis, fevers or chills, cough. She denies shortness of breath. She is a non-smoker. ROS All systems reviewed and are negative except as per history of present illness. Medications Home Meds Reported Medications Ferrous Sulfate (Iron Supplement) 1 Tab Tablet, 1 TAB PO DAILY 01/18/14 Vits W-Ca,Fe,Fa(<1MG) () 1 Tab Tablet 07/06/11 Allergies Allergies: Coded Allergies: No Known Drug Allergies (Verified Allergy, Unknown, 12/06/16) PMhx/Soc Medical and Surgical Hx: pt denies Medical Hx, pt denies Surgical Hx History of Surgery: No Anesthesia Reaction: No Hx Neurological Disorder: No Hx Respiratory Disorders: No Hx Cardiac Disorders: No Hx Psychiatric Problems: No Hx Miscellaneous Medical Probl: No Hx Alcohol Use: No Hx Substance Use: No Hx Tobacco Use: No Smoking Status: Never smoker Physical Exam Vitals Vital Signs Date Time Temp Pulse Resp B/P Pulse Ox O2 Delivery O2 Flow Rate FiO2 03/19/17 10:46 98.1 68 18 112/56 100 Physical Exam General: Well-developed, well-nourished. The patient appears in no acute distress. HEENT: Head is normocephalic, atraumatic. No scleral icterus. Neck: Supple. Nontender. Lungs: Clear to auscultation. Normal air movement. Heart: Regular rate and rhythm. S1 and S2 are normal. No murmurs, gallops, or rubs. Abdomen: Soft, nontender, nondistended. Bowel sounds are normoactive. Extremities: No clubbing or cyanosis. Normal pulses. Moving extremities x 4. No weakness. Neurologic: Alert and oriented 3. No focal deficits. Skin: Normal turgor. No rash or lesions. Results 24 hrs Current Medications Medications (Trade) Dose Ordered Sig/Juan Manuel Route PRN Reason Start Time Stop Time Status Last Admin Dose Admin Ibuprofen (Motrin) 600 mg ONCE ONCE PO 03/19/17 12:30 03/19/17 12:31 DC 11/6/17 12:26 DIAGNOSTIC IMAGING REPORT Patient: ANEL CLAYTON : 1990 Age: 26 Sex: F MR #: [id number] DOS: 03/19/17 1218 Ordering MD: JEANA ASTORGA PA-C Location: [facility] Room/Bed: PROCEDURE: XR Chest AP portable CLINICAL INDICATION: Left-sided chest pain TECHNIQUE: An AP portable radiograph of the chest was submitted. COMPARISON: None. FINDINGS: Support Hardware: None Cardiovascular: The cardiovascular silhouette appears unremarkable. Lung Mahmood: A 7 mm nodular density projects to the lateral right lower lung zone. The lung mahmood are otherwise clear. Pleural Spaces: No pneumothorax or pleural effusion is identified. Osseous Structures: The osseous structures appear intact. Soft Tissues: The soft tissues appear unremarkable. IMPRESSION: 1. A 7 mm nodular density projects to the lateral right lower lung zone. If the patient is low risk and previous chest images cannot be obtained, a CT at 6- 12 months and then at 18-24 months would be useful to further evaluate. 2. Otherwise, unremarkable chest. Physician Gregor Date Time Electronically viewed and signed by Physician Gregor on 03/19/2017 12:49 RH/ CC: JEANA ASTORGA PA-C Procedures/MDM 12-lead EKG(interpreted by supervising physician): Rate/Rhythm: Normal Sinus Rhythm, rate of 86 QRS, ST, T-waves: No changes consistent w/ acute ischemia, no intervals, no dysrhythmias, no ectopy Impression: No evidence of ischemia or arrhythmia MDM: 26-year-old female presents to the emergency room with chest pain on the left side ongoing for a month. Patient presents with symptoms that are intermittent, without any signs of respiratory distress and her vital signs are normal. She had an EKG as well as chest x-ray that did not show evidence of ischemic disease, widened mediastinum. She presents with a 7 mm pulmonary nodule in the right midlung, this was discussed at length with the patient she was advised to follow-up with a primary care doctor to get a CT scan of the chest and reevaluation. If the patient continues no chest pain the patient will require us reevaluation with cardiology, she is to follow-up with her primary care doctor for referral. Departure Diagnosis: Primary Impression: Lung nodule Additional Impression: Chest pain Condition: Good JEANA ASTORGA PA-C Mar 19, 2017 13:17
== END 2017-03-19 13:20 | disposition home or self-care (01) ==
LOC: FTE 10:42
DX: R91.1 Solitary pulmonary nodule (principal)
CPT/HCPCS: 71010; 93005

== ENCOUNTER 2017-12-18 11:07 | Emergency (ER) | END 2017-12-18 13:26 | disposition home or self-care (01) ==

== ENCOUNTER 2018-11-23 13:49 | Emergency (ER) | payer OTHER ==
[~2018-11-23] VITALS: Wt 74.0 kg
[2018-11-23 13:55] VITALS: PULSE 87
--- NOTE | 2018-11-23 17:14 | ERD ---
ER Documentation Chief Complaint Chief Complaint SUDDEN ONSET DIZZINESS A FEW HOURS AGO .NO TRAUMA OR MANCILLA,NO NEURO DEF HPI 28-year-old female, previously healthy, presents the emergency department, complaining of a spinning sensation that started approximately 2 hours ago, suddenly, no history of trauma, no headache, no fever or chills, no nausea or vomiting. ROS All systems reviewed and are negative except as per history of present illness. Medications Home Meds Reported Medications Ferrous Sulfate (Iron Supplement) 1 Tab Tablet, 1 TAB PO DAILY 01/18/14 Vits W-Ca,Fe,Fa(<1MG) () 1 Tab Tablet 07/06/11 Allergies Allergies: Coded Allergies: No Known Drug Allergies (Verified Allergy, Unknown, 12/18/17) PMhx/Soc History of Surgery: No Anesthesia Reaction: No Hx Neurological Disorder: No Hx Respiratory Disorders: No Hx Cardiac Disorders: No Hx Psychiatric Problems: No Hx Miscellaneous Medical Probl: No Hx Alcohol Use: No Hx Substance Use: No Hx Tobacco Use: No Physical Exam Vitals Vital Signs Date Temp Pulse Resp B/P (MAP) Pulse Ox O2 O2 Flow FiO2 Time Delivery Rate 11/23/18 98.5 87 18 118/55 98 13:55 (76) Physical Exam Const: No acute distress Head: Atraumatic Eyes: Normal Conjunctiva ENT: Normal External Ears, Nose and Mouth. Neck: Full range of motion. No meningismus. Resp: Clear to auscultation bilaterally Cardio: Regular rate and rhythm, no murmurs Abd: Soft, non tender, non distended. Normal bowel sounds Skin: No petechiae or rashes Back: No midline or flank tenderness Ext: No cyanosis, or edema Neur: Awake and alert Psych: Normal Mood and Affect Departure Diagnosis: Primary Impression: Positional vertigo Additional Impression: Otitis externa of left ear Condition: Stable Patient Instructions: Vertigo, Unspecified Additional Instructions: Thank you very much for allowing us to participate in your care. Your health and safety is our top priority at [facility]. The evaluation in the emergency department has been done to rule out an acute emergency. Chronic, [id number] conditions may have not been evaluated; therefore, you need to follow up with a primary care provider in the next 48h. If symptoms persist, worsen or new symptoms develop, then patient should return to the ED immediately. Call your primary care doctor TOMORROW for an appointment during the next 2-4 days and bring all the information provided. Have prescriptions filled and follow precisely the directions on the label. If the symptoms get worse and your provider is unavailable, return to the Emergency Department immediately. ISATU MAI MD Nov 23, 2018 17:14
[2018-11-23] MEDS ORDERED: NPH10OT LEFT EAR (17:35)
[2018-11-23] MEDS ORDERED: MECL12.574 PO (17:35)
[2018-11-23] MEDS ORDERED: ONDA4TAB8 PO (17:35)
[2018-11-23 17:50] VITALS: BP 110/57; RESP 17
== END 2018-11-23 18:02 | disposition home or self-care (01) ==
LOC: FTE 13:49
DX: H81.12 Benign paroxysmal vertigo, left ear (principal); H60.92 Unspecified otitis externa, left ear
CPT/HCPCS: 99283